=== PATIENT | female | born 1980 | race Asian ===

== ENCOUNTER → 2024-01-15 06:31 | Day surgery (SDC) | payer BC, SELFPAY | LOC: GI 06:31 | PROVIDERS: ATTENDING PHYSICIAN Internal Medicine Gastroenterology; FAMILY PHYSICIAN Nurse Practitioner Adult Health | DX: Z12.11 Encounter for screening for malignant neoplasm of colon (principal); K64.8 Other hemorrhoids; Q43.8 Other specified congenital malformations of intestine | CPT/HCPCS: G0121 ==

== ENCOUNTER → 2024-07-21 16:27 | Outpatient (REF) | payer BC, SELFPAY | LOC: HWWDC 16:27 | PROVIDERS: ATTENDING PHYSICIAN Nurse Practitioner Adult Health | DX: Z12.31 Encounter for screening mammogram for malignant neoplasm of breast (principal) | CPT/HCPCS: 77063; 77067 ==

== ENCOUNTER → 2025-01-12 10:36 | Outpatient (REF) | payer OTHER, SELFPAY ==
[2025-01-12 19:10] LABS: Hepatitis B Surface Antibody Negative
[2025-01-12 20:09] LABS: Rubella Positive
[2025-01-14 10:54] LABS: Quantiferon Mitogen minus NIL 9.93 IU/mL; Quantiferon NIL 0.07 IU/mL; Quantiferon TB Gold Plus Positive (Negative)
[2025-01-14 12:28] LABS: Mumps Virus IgG Positive; Rubeola (Measles) IgG Positive; Varicella Zoster IgG (VZV) Positive
== END ==
LOC: OHS 10:36
PROVIDERS: ATTENDING PHYSICIAN Nurse Practitioner Family
DX: Z23 Encounter for immunization (principal)
CPT/HCPCS: 36415; 86480; 86706; 86735; 86762; 86765; 86787

== ENCOUNTER → 2025-01-16 09:18 | Outpatient (REF) | payer OTHER, BC, SELFPAY | LOC: OHS 09:18 | PROVIDERS: ATTENDING PHYSICIAN Nurse Practitioner Family; FAMILY PHYSICIAN Nurse Practitioner Adult Health | DX: Z13.9 Encounter for screening, unspecified (principal) | CPT/HCPCS: 71046 ==

== ENCOUNTER → 2025-02-19 09:24 | Outpatient (REF) | payer BC, SELFPAY | LOC: HWRCS 09:24 | PROVIDERS: ATTENDING PHYSICIAN Physician Assistant Medical; FAMILY PHYSICIAN Nurse Practitioner Adult Health | DX: R42 Dizziness and giddiness (principal); I49.3 Ventricular premature depolarization; I08.0 Rheumatic disorders of both mitral and aortic valves | CPT/HCPCS: 93306 ==

== ENCOUNTER → 2025-08-07 12:17 | Outpatient (REF) | payer OTHER, SELFPAY | LOC: HWWDC 12:17 | PROVIDERS: ATTENDING PHYSICIAN Nurse Practitioner Adult Health | DX: Z12.31 Encounter for screening mammogram for malignant neoplasm of breast (principal) | CPT/HCPCS: 77063; 77067 ==